=== PATIENT | male | born 1940 | race Caucasian/White ===

== ENCOUNTER 2017-10-17 02:45 | Outpatient (CLI) | payer MEDICARE, BC ==
[~2017-10-17] VITALS: Ht 177.8 cm; Wt 119.5 kg
[~2017-10-17 02:45] MED LIST: ASPIRIN81 MG PO; FISH OIL 1,2001 CAP PO; NEURONTIN 400400 MG PO; PLAVIX75 MG PO; ULTRAM ER100 MG PO; VASOTEC10 MG PO
[2017-10-17 03:36] LABS: BASOPHILS 0.1 % (0-2); EOSINOPHILS 0.1 % (0-7); HEMATOCRIT 45.2 % (42.0-54.0); HEMOGLOBIN 15.4 g/dL (13.5-17.5); IMMATURE GRANULOCYTES 0.3 % (0-5); LYMPHOCYTES 5.2 % (15-50); MCH 31.2 pg (26.0-34.0); MCHC 34.1 g/dL (31.0-37.0); MCV 91.5 fL (80.0-100.0); MEAN PLATELET VOLUME 9.9 fL (7.4-10.4); MONOCYTES 3.2 % (2-11); NEUTROPHILS 91.1 % (40-80); PLATELET COUNT 176 10x3/uL (130-400); RBC 4.94 10x6/uL (4.20-6.10); RDW 12.8 % (11.5-14.5); WBC 19.7 10x3/uL (4.8-10.8)
[2017-10-17 03:42] LABS: APPEARANCE CLEAR (CLEAR); BILIRUBIN NEGATIVE (NEGATIVE); COLOR DK YELLOW (YELLOW); GLUCOSE NEGATIVE (NEGATIVE); KETONE NEGATIVE (NEGATIVE); NITRITE NEGATIVE (NEGATIVE); PROTEIN NEGATIVE (NEGATIVE); UROBILINOGEN NORMAL (NORMAL)
[2017-10-17 03:43] LABS: BACTERIA FEW /hpf (NONE SEEN); EPITHELIAL CELLS 0-5 /hpf (0-5); HYALINE CAST OCC /lpf (NONE SEEN); RED CELLS - URINE NONE SEEN /hpf (0-5); WHITE CELLS - URINE 0-5 /hpf (0-5)
[2017-10-17 03:44] LABS: ALBUMIN 3.5 g/dL (3.4-5.0); ALKALINE PHOSPHATASE 61 U/L (46-116); ALT (SGPT) 29 U/L (10-68); BILIRUBIN - TOTAL 0.58 mg/dL (0.2-1.3); CALC OSMOLALITY 283 mosm/kg (275-300); CARBON DIOXIDE 31.4 mmol/L (21.0-32.0); CHLORIDE - SERUM 102 mmol/L (98-107); CREATININE - SERUM 1.4 mg/dL (0.6-1.3); GLUCOSE 149 mg/dL (74-106); POTASSIUM - SERUM 5.1 mmol/L (3.5-5.1); PROTEIN - SERUM 7.3 g/dL (6.4-8.2); SODIUM 136 mmol/L (136-145); UREA NITROGEN 38 mg/dL (7-18); eGFR NON AFRICAN AMERICAN 52 mL/min (90-120)
[2017-10-17 03:47] LABS: AMYLASE - SERUM 42 U/L (25-115); LIPASE 98 U/L (73-393)
[2017-10-17 03:56] LABS: TROPONIN-I < 0.017 ng/mL (0.000-0.060)
[2017-10-17 09:29] VITALS: BP 146/84
[2017-10-17 11:10] VITALS: Ht 177.8 cm; Wt 119.5 kg
== END 2017-10-17 14:49 | disposition home or self-care (01) ==
LOC: OBSVTIME → D.ER 02:45 → D.OPS 02:45 → OBSVTIME 06:45 → D.EDHOLD 07:11 → D.ER 07:11 → OBSVTIME 07:11 → D.ER 09:30 → EDSTATUS 11:00 → D.SDCHOLD 11:13 → D.EDHOLD 11:13 → D.OPS 14:49 → D.SDCHOLD 14:49
PROVIDERS: Family Medicine
DX: K56.41 Fecal impaction (principal); I10 Essential (primary) hypertension; R33.9 Retention of urine, unspecified

== ENCOUNTER → 2018-10-02 08:11 | Outpatient (CLI) | payer MEDICARE, BC ==
--- NOTE | 2018-10-07 08:31 | EC ---
PATIENT:FERNANDO BRASHER DATE OF SERVICE: 10/02/18 SEX: M MEDICAL RECORD: [id number] DATE OF : 44 [facility] AGE OF PATIENT: 78 ADMISSION DATE: 10/02/18 REFERRING PHYSICIAN: INTERPRETING PHYSICIAN: MICHEAL MOSELEY MD ECHOCARDIOGRAM REPORT ECHO CHARGES 4 ECHO COMPLETE Date: 10/02/18 CLINICAL DIAGNOSIS: CAD/MITRAL/TRICUSPID REGURG ECHOCARDIOGRAPHIC MEASUREMENTS (adult normal given) AC root (d.<3.7cm) 3.9 cm LV Septum d (<1.2 cm> 1.5 cm Valve Excursion 2.3 cm LV Septum (systole) 1.9 cm Left Atria (s.<4.0cm> 4.8 cm LVPW d(<1.2cm) 1.7 cm RV (d.<2.3cm) 4.5 cm LVPW (sytole) 1.8 cm LV diastole(<5.6CM) 4.8 cm MV E-F(>70mm/sec) cm LV systole 3.0 cm LVOT Diameter 2.4 cm MV exc.(>10mm) 1.0 cm Est.ejection fraction (50-75%) % DOPPLER: LVIT cm/sec A 96.0 cm/sec E 86.0 cm/sec LA cm/sec RVSP 22 mmHg LVOT 114 cm/sec AOP1/2T m/s Asc. Ao 138 cm/sec RVOT 95 cm/sec RA cm/sec PA 124 cm/sec AV Gradient Peak 7.60 mmHg AV Mean 3.74 mmHg AV Area 4.0 cm MV Gradient Peak mmHg MV Mean mmHg MV Area cm COMMENTS: Wheel Tuner: Jackson VALENTIN Paste Thinner: 3 Dr. Busch TAPE# PACS Pericardial Effusion N DATE OF SERVICE: 10/02/2018 Adequate 2-D echo, color-flow and spectral Doppler, and M-mode. LVH is present. LV internal dimensions are normal. Wall motion is normal. EF is greater than or equal to 55%. Aortic valve sclerosis without stenosis by Doppler interrogation. Left atrium is dilated at 4.8 cm. Mitral valve shows no prolapse. Mild MR. Right-sided chambers are grossly normal. Mild TR. TRANSINT:[id number] Voice Confirmation ID: [id number] DOCUMENT ID: [id number] ECHOCARDIOGRAM REPORT [id number] FERNANDO BRASHER GREGORY A MD at 0831 CC: [id number] DICTATION DATE: 10/03/18 1530 DRAMATIC COACH: 10/03/18 1608 DEP CLI 10/02/18 [place] [id number] [place] [id number]
== END | disposition home or self-care (01) ==
LOC: D.HCCARDIO 08:11
PROVIDERS: ATTEND Internal Medicine Interventional Cardiology
DX: I25.10 Atherosclerotic heart disease of native coronary artery without angina pectoris (principal)

== ENCOUNTER → 2019-10-10 08:36 | Outpatient (CLI) | payer MEDICARE, BC ==
--- NOTE | 2019-10-14 08:41 | EC ---
PATIENT:FERNANDO BRASHER DATE OF SERVICE: 10/10/19 SEX: M MEDICAL RECORD: [id number] DATE OF : 44 [facility] AGE OF PATIENT: 79 ADMISSION DATE: 10/10/19 REFERRING PHYSICIAN: INTERPRETING PHYSICIAN: MICHEAL MOSELEY MD ECHOCARDIOGRAM REPORT ECHO CHARGES 4 ECHO COMPLETE Date: 10/10/19 CLINICAL DIAGNOSIS: CAD/ASSESS EF AND VALVES ECHOCARDIOGRAPHIC MEASUREMENTS (adult normal given) AC root (d.<3.7cm) 4.1 cm LV Septum d (<1.2 cm> 1.8 cm Valve Excursion 1.9 cm LV Septum (systole) 2.4 cm Left Atria (s.<4.0cm> 4.0 cm LVPW d(<1.2cm) 1.9 cm RV (d.<2.3cm) 4.2 cm LVPW (sytole) 2.2 cm LV diastole(<5.6CM) 4.2 cm MV E-F(>70mm/sec) cm LV systole 2.9 cm LVOT Diameter 1.8 cm MV exc.(>10mm) 1.2 cm Est.ejection fraction (50-75%) % DOPPLER: LVIT cm/sec A 77.0 cm/sec E 76.0 cm/sec LA cm/sec RVSP 16 mmHg LVOT 112 cm/sec AOP1/2T 704 m/s Asc. Ao 159 cm/sec RVOT 83 cm/sec RA cm/sec PA 109 cm/sec AV Gradient Peak 10.06mmHg AV Mean 5.24 mmHg AV Area 1.7 cm MV Gradient Peak 3.62 mmHg MV Mean 1.61 mmHg MV Area cm COMMENTS: Insurance Examiner: 2 JODI VALENTIN Financial Processing Clerk: 3 Dr. Busch TAPE# PACS Pericardial Effusion N DATE OF SERVICE: Adequate 2D, color flow imaging, spectral Doppler, and M-Mode. LVH is present. LV internal dimension is normal. Wall motion is normal. EF is greater than or equal to 55%. Aortic valve is sclerotic. There is no evidence of stenosis by Doppler interrogation. Mild AI by color flow imaging. Left atrium is normal 4.0 cm. Mitral valve shows no prolapse. Trace MR. Right-sided chambers are grossly normal. Trace TR. ECHOCARDIOGRAM REPORT [id number] FERNANDO BRASHER TRANSINT:[id number] Voice Confirmation ID: [id number] DOCUMENT ID: [id number] MICHEAL MOSELEY MD at 0841 CC: [id number] DICTATION DATE: 10/13/191203 LUNCHROOM MONITOR: 10/13/19 2133 DEP CLI 10/10/19 [place] [id number] [place] [id number]
== END | disposition home or self-care (01) ==
LOC: D.HCCECHO 08:36
PROVIDERS: ATTEND Internal Medicine Interventional Cardiology
DX: I25.10 Atherosclerotic heart disease of native coronary artery without angina pectoris (principal)

== ENCOUNTER 2020-07-02 06:53 | Day surgery (SDC) | payer MEDICARE, BC ==
[2020-07-01 10:21] LABS: ANION GAP 6.5 mmol/L (8-16); CALCIUM 8.9 mg/dL (8.5-10.1); CARBON DIOXIDE 33.1 mmol/L (21.0-32.0); CREATININE - SERUM 1.1 mg/dL (0.6-1.3); POTASSIUM - SERUM 4.6 mmol/L (3.5-5.1)
[2020-07-01 10:34] LABS: BASOPHILS 0.5 % (0-2); EOSINOPHILS 3.2 % (0-7); HEMATOCRIT 46.4 % (42.0-54.0); HEMOGLOBIN 14.9 g/dL (13.5-17.5); IMMATURE GRANULOCYTES 0.3 % (0-5); LYMPHOCYTE ABS# 2.08 10x3/uL (1.32-3.57); LYMPHOCYTES 31.8 % (15-50); MCH 30.3 pg (26.0-34.0); MCHC 32.1 g/dL (31.0-37.0); MCV 94.3 fL (80.0-100.0); MEAN PLATELET VOLUME 9.9 fL (7.4-10.4); MONOCYTES 8.1 % (2-11); NEUTROPHIL ABS# 3.68 10x3/uL (1.78-5.38); NEUTROPHILS 56.1 % (40-80); RBC 4.92 10x6/uL (4.20-6.10); RDW 13.1 % (11.5-14.5); WBC 6.6 10x3/uL (4.8-10.8)
[2020-07-01 10:35] LABS: PLATELET COUNT 172 10x3/uL (130-400)
[~2020-07-02] VITALS: Ht 175.3 cm; Wt 122.7 kg
[~2020-07-02 06:53] MED LIST changes: +CENTRUM MEN'S1 EACH PO; +MIRALAX17 GM PO; +NYAMYC60 GM TP; +TURMERIC PO; +VENTOLIN HFA [SP8 GM INH; +ZESTRIL20 MG PO; +ZOCOR20 MG PO
[2020-07-02 07:26] VITALS: BP 146/70; BMI 41.0
--- NOTE | 2020-07-02 14:43 | NUR ---
0191 DR DOLL NOTIFIED THAT PATIENT WANTED TO STAY OVER NIGHT AND UNABLE TO GO UP SIX STEPS IN [place]. AND NOT ANBLE TO CARE FOR PT. REQUESTED EARLIER. ON O2 NC
--- NOTE | 2020-07-02 14:48 | NUR ---
9852 KIMMY CALLED AND LET HER KNOW. CHILD AND YOUTH PROGRAM ASSISTANT CALLED WELL
[2020-07-02 21:13] VITALS: BP 145/67
[2020-07-02 23:10] VITALS: Ht 175.3 cm; Wt 122.7 kg
[2020-07-03 00:38] VITALS: BP 106/60
--- NOTE | 2020-07-03 02:05 | NUR ---
PT RESTING IN BED WITH EYES OPEN. ASSIST PT TO STAND AND USE URINAL. PT COMPLAINT OF PAIN MED GIVEN. WILL CONT TO MONITOR
[2020-07-03 05:24] VITALS: BP 108/61
[2020-07-03 07:19] LABS: BASOPHILS 0.2 % (0-2); EOSINOPHILS 0.7 % (0-7); HEMATOCRIT 44.4 % (42.0-54.0); HEMOGLOBIN 14.3 g/dL (13.5-17.5); IMMATURE GRANULOCYTES 0.1 % (0-5); LYMPHOCYTE ABS# 1.86 10x3/uL (1.32-3.57); LYMPHOCYTES 17.9 % (15-50); MCH 30.4 pg (26.0-34.0); MCHC 32.2 g/dL (31.0-37.0); MCV 94.3 fL (80.0-100.0); MEAN PLATELET VOLUME 9.9 fL (7.4-10.4); MONOCYTES 7.5 % (2-11); NEUTROPHIL ABS# 7.64 10x3/uL (1.78-5.38); NEUTROPHILS 73.6 % (40-80); PLATELET COUNT 191 10x3/uL (130-400); RBC 4.71 10x6/uL (4.20-6.10)
[2020-07-03 07:23] LABS: WBC 10.4 10x3/uL (4.8-10.8)
[2020-07-03 07:31] LABS: ALBUMIN 3.4 g/dL (3.4-5.0); ANION GAP 10.3 mmol/L (8-16); BILIRUBIN - TOTAL 0.42 mg/dL (0.2-1.3); CALCIUM 8.6 mg/dL (8.5-10.1); CARBON DIOXIDE 29.9 mmol/L (21.0-32.0); CREATININE - SERUM 1.3 mg/dL (0.6-1.3); POTASSIUM - SERUM 4.2 mmol/L (3.5-5.1); PROTEIN - SERUM 6.8 g/dL (6.4-8.2)
--- NOTE | 2020-07-03 09:00 | NUR ---
REPORTED LOW BP TO DR MEYER, , WILL HENRY MANUALLY, PT VERY CONCERNED
[2020-07-03 09:29] VITALS: BP 106/30
--- NOTE | 2020-07-03 09:42 | NUR ---
UP TO BATHROOM THIS AM, ANDRES WELL, ABD BINDER IN PLACE, IV INFUSING, CONT TO MONITOR
[2020-07-03] MEDS ORDERED: HYDROCODON-ACE1 EAC7 PO (11:05)
[2020-07-03] MEDS ORDERED: COLACE100 MG PO (11:06)
[2020-07-03 11:09] VITALS: BP 145/53
--- NOTE | 2020-07-03 11:16 | NUR ---
MEDICATED FOR PAIN, BP WNL, FAMILY IN ROOM
--- NOTE | 2020-07-03 12:29 | NUR ---
REVIEWED DC ORDERS WITH PT, VOICED NO CONCERNS, PROVIDED 2 RX, REMOVED IV, TIP INTACT
--- NOTE | 2020-07-03 12:45 | NUR ---
TAKEN PER WC TO PRIVATE VEHICLE
[2020-07-03 14:22] VITALS: BP 145/53
--- NOTE | 2020-07-06 14:34 | HP ---
PATIENT: FERNANDO BRASHER MEDICAL RECORD: [id number] ACCOUNT: [id number] LOCATION:[facility] : 44 ADMISSION DATE: 07/02/20 PCP: CHELA GREGORY MD HISTORY AND PHYSICAL EXAMINATION PREOPERATIVE DIAGNOSIS: Ventral hernia repair. HISTORY: The patient has a ventral hernia, which is at least partially reducible. He is to undergo a laparoscopic repair with mesh. The risks, possible complications, and alternatives of procedure were explained to the patient. He elects to proceed. The discussion specifically included, but was not limited to, bleeding requiring emergency reoperation, infection, intestinal injury as well as postoperative urinary retention. PAST MEDICAL AND SURGICAL HISTORY: Please see the chart. ALLERGIES: Please see the chart. CURRENT MEDICINES: Please see the chart. There is an outdated history and physical on the chart. PHYSICAL EXAMINATION: GENERAL: The patient does not appear acutely ill. He does not appear chronically ill. EARS: External ears appear normal. He is hard of hearing. EYES: Extraocular movements are intact. NECK: Trachea is midline. CHEST: No intercostal retractions. PULMONARY: Nonlabored. No stridor. ABDOMEN: Protuberant. EXTREMITIES: There is a ventral hernia at the umbilicus, which is at least partially reducible. IMPRESSION: Symptomatic enlarging ventral hernia. PLAN: Laparoscopic repair with mesh. TRANSINT:[id number] Voice Confirmation ID: [id number] DOCUMENT ID: [id number] ALEXANDREA DOLL MD at 1434 CC: CHELA GREGORY MD, STEPHANIE QUINONEZ MD and MICHEAL MOSELEY [id number] DICTATION DATE: 07/02/20 0945 VETERINARY RADIOLOGIST: 07/02/20 1011 [facility] 07/03/20 [place] [id number] [place] [address]
--- NOTE | 2020-07-08 13:13 | OP ---
PATIENT NAME: FERNANDO BRASHER MEDICAL RECORD: [id number] :44 LOCATION:[facility] ADMISSION DATE: SURGEON: ALEXANDREA DOLL MD DATE OF OPERATION: 07/02/2020 PREOPERATIVE DIAGNOSIS: Symptomatic partially reducible ventral hernia. POSTOPERATIVE DIAGNOSIS: Symptomatic incarcerated ventral hernia. PROCEDURE: Laparoscopic incarcerated ventral hernia repair with Ventralight ST mesh utilizing the Echo positioning system. SURGEON: Alexandrea Doll MD FLAVOR TANK TENDER: None. BLOOD LOSS: Minimal. ANESTHESIA: General. COMPLICATIONS: None. The risks, possible complications, and alternatives of the procedure were explained to the patient. He elected to proceed. The discussion specifically included, but was not limited to, bleeding requiring emergency reoperation, infection, intestinal injury. I specifically told him that we would have to use mesh in his case because without mesh that would be about 100% chance of the hernia recurring. This can lead to chronic pain. OPERATIVE COURSE: The patient was conveyed to the operating room electively on 07/02/2020. General anesthesia was induced by the anesthesia staff. The abdomen was sterilely prepped and draped. A transverse skin incision was accomplished in the left upper quadrant. A Veress needle was inserted through the skin incision into the peritoneal cavity. CO2 insufflation was begun. Once a sufficient pneumoperitoneum had been achieved utilizing the laparoscopic camera, a 5-mm trocar was inserted in the left side of the abdomen and two 5-mm trocars were inserted in the right side of the abdomen. During insertion of the Veress needle and all trocars, there appeared to have been no injury to the bowels, any intraperitoneal or retroperitoneal structures. With pressure over the umbilicus, I was able to reduce the incarcerated contents completely. The incarcerated contents consisted of omentum only. This was done with the Harmonic scalpel. I then created a prevesicular flap utilizing the Harmonic scalpel. There was no evidence of bladder injury. Preperitoneal fat was then excised with the Harmonic scalpel as well. I took down the falciform ligament as well as the anterior portion of the triangular ligament and this was done with the Harmonic scalpel as well. I measured the hernia defect. I chose a mesh size where there was going to be significant overlap to decrease the risk of recurrence of the hernia. OPERATIVE REPORT [id number] FERNANDO BRASHER I then brought the Ventralight ST mesh onto the sterile field and it was hydrated. It was then rolled up and advanced down through the 12-mm trocar. An incision was accomplished cephalad to the hernia defect. I then angled a laparoscopic suture passer from this incision through the hernia defect. The tail of the positioning system was grasped with the suture passer and brought out through the anterior abdominal wall. I then cut the tubing. It was attached to the inflation device and then inflated. The mesh sat nicely against the anterior abdominal wall with the slick side toward the bowels and the rough side toward the anterior abdominal wall. Circumferential tacking was performed with the OptiFix device. The herniorrhaphy was then completed utilizing the SorbaFix device with circumferential tacking. The positioning system was then removed in its entirety. I irrigated and aspirated. There was no bleeding. Some devascularized fatty tissue was removed utilizing an Endobag. The 12-mm trocar was removed. The muscle at the 12 mm trocar was approximated utilizing the Loc-Ariela suture closure device and 0 Vicryl sutures. All the trocars were removed and the abdomen desufflated. Skin incisions were closed with interrupted intracuticular 3-0 Vicryls. A small incision above the umbilicus was closed with a single 4-0 Vicryl Rapide suture. Benzoin and Steri-Strips were applied. The patient was then extubated and conveyed to post-anesthesia care unit where he was in stable condition. He is not to do any lifting or straining for 3 weeks. I will see him in the office in 2 to 3 weeks. TRANSINT:[id number] Voice Confirmation ID: [id number] DOCUMENT ID: [id number] ALEXANDREA DOLL MD at 1313 CC: [id number] DICTATION DATE: 07/08/[address] SPRINKLER: 07/08/20 1234 [facility] 07/03/20 [place] [id number] [place] [address]
== END 2020-07-03 12:45 | disposition home or self-care (01) ==
LOC: D.OPS 06:53 → D.MS 15:46 → D.OPS 07-03 12:45
PROVIDERS: ATTEND Surgery
DX: K43.6 Other and unspecified ventral hernia with obstruction, without gangrene (principal); I10 Essential (primary) hypertension; E78.5 Hyperlipidemia, unspecified